=== PATIENT | female | born 1975 | race Caucasian/White ===

== ENCOUNTER → 2025-02-01 09:09 | Outpatient (REF) | payer BC, SELFPAY | LOC: EMG 09:09 | PROVIDERS: ATTENDING PHYSICIAN Physician Assistant Surgical; FAMILY PHYSICIAN Family Medicine | DX: M25.532 Pain in left wrist (principal); R20.0 Anesthesia of skin | CPT/HCPCS: 95886; 95909 ==

== ENCOUNTER → 2025-02-11 14:01 | Outpatient (REF) | payer BC, SELFPAY | LOC: CLAB 14:01 | PROVIDERS: ATTENDING PHYSICIAN Orthopaedic Surgery | DX: R22.32 Localized swelling, mass and lump, left upper limb (principal) | CPT/HCPCS: 88304 ==